=== PATIENT | female | born 1950 | race African-American/Black ===

== ENCOUNTER 2018-10-20 14:50 | Emergency (ER) | payer OTHER ==
--- OUTSIDE RECORDS SUMMARY | 2018-10-20 14:53 | XMS REPORT ---
:1950 Author Organization [facility] Address [address] [place] [address] [address]. [address] [place] [address] Care Team Providers Name Role Phone Unavailable Unavailable Unavailable Problems This patient has no known problems. Allergies, Adverse Reactions, Alerts This patient has no known allergies or adverse reactions. Medications This patient has no known medications.
--- OUTSIDE RECORDS SUMMARY | 2018-10-20 14:53 | XMS REPORT | Clinical Summary ---
:1950 Author Organization [facility] Address [address] [place] [address] Care Team Providers Name Role Phone Asked, No Pcp Primary Care Provider Unavailable Allergies Active Allergy Reactions Severity Noted Date Comments Levofloxacin Swelling 01/04/2017 Medications Medication Sig Dispensed Refills Start Date End Date Status ibuprofen Take 800 mg by 0 Active (ADVIL,MOTRIN) 800 MG mouth every 6 tablet (six) hours as needed for mild pain. metoprolol succinate Take 25 mg by 0 Active XL (TOPROL-XL) 25 mg mouth daily. 24 hr tablet amlodipine-benazepril Take 1 capsule 0 Active (LOTREL 5-10) 5-10 mg by mouth daily. per capsule cyanocobalamin 500 MCG Take 500 mcg by 0 Active tablet mouth daily. diazePAM (VALIUM) 5 MG Take 5 mg by 0 Active tablet mouth nightly as needed for anxiety. aspirin (ECOTRIN) 81 Take 81 mg by 0 Active MG enteric coated mouth daily. tablet lansoprazole Take 15 mg by 0 Active (PREVACID) 15 MG mouth daily. capsule HYDROcodone-acetaminop Take 1 tablet 0 Active hen (NORCO) 7.5-325 mg by mouth every per tablet 6 (six) hours as needed for moderate pain. naproxen (NAPROSYN) Take 1 tablet 60 tablet 0 01/04/2017 01/04/2018 500 MG tablet (500 mg total) by mouth 2 (two) times a day with meals. Active Problems Problem Noted Date Primary osteoarthritis of left hip 01/04/2017 DDD (degenerative disc disease), lumbar 01/04/2017 Tendinitis of hip 01/04/2017 Social History Tobacco Use Types Packs/Day Years Used Date Never Assessed Sex Assigned at Date Recorded Not on file Job Start Date Occupation Industry Not on file Not on file Not on file Travel History Travel Start Travel End No recent travel history available. Last Filed Vital Signs Not on file Plan of Treatment Health Maintenance Due Date Last Done Comments BREAST CANCER SCREENING 2002 COLON CANCER SCREENING 2002 SHINGLES VACCINES (1 of 2) 2002 PNEUMOCOCCAL POLYSACCHARIDE VACCINE AGE 65 AND OVER 2017 PNEUMOCOCCAL-13 2017 INFLUENZA VACCINE 05/16/2018 Results Not on fileafter 10/19/2017 Insurance Payer Benefit Plan / Group Subscriber ID Type Phone Address MEDICARE MEDICARE PART A AND B xxxxxxxxxxx Medicare [place], [place] Advance Directives Patient has advance care planning documents on file. For more information, please contact:[facility] [address] [place] [address]
[2018-10-20 20:25] LABS: Absolute Lymphocytes (CBC) 2.4 K/uL (0.7-4.9); Absolute Monocytes 0.8 K/uL (0.1-1.3); Absolute Neutrophil 5.3 K/uL (1.8-8.0); Basophils % 1.1 % (0-1.3); Eosinophils % 1.4 % (0-4.4); Hematocrit 41.4 % (36.0-45.0); MPV 9.6 fL (7.6-11.3); Monocytes % 8.8 % (3.3-12.3); RBC Red Blood Cell Count 4.81 M/uL (3.86-4.86)
[2018-10-20 20:27] LABS: Protime INR 1.13
[2018-10-20] MEDS ORDERED: ONDANSETRON 4 MG/2 ML VIAL ONE (20:27)
[2018-10-20] MEDS ORDERED: MORPHINE 4 MG/ML SYR ONE (20:27)
[2018-10-20] MEDS ORDERED: PIPER/TAZO/NS 3.375gm 3.375 GM/100 ML BAG ONE (20:27)
[2018-10-20] MEDS ORDERED: AMOX/K CLAV 875 MG TAB ONE (20:27)
[2018-10-20] MEDS ORDERED: NA CHLORIDE 0.9% 1,000 ML ONE (20:28)
[2018-10-20 20:30] LABS: Urine Blood 1+ (NEG); Urine Glucose NEGATIVE (NEG); Urine Protein NEGATIVE (NEG); Urine pH 6.5 (5.0-7.0)
[2018-10-20 20:44] LABS: ALT/SGPT 50 U/L (12-78); AST/SGOT 32 U/L (15-37); Albumin 3.6 g/dL (3.4-5.0); Alkaline Phosphatase 154 U/L (45-117); BUN Blood Urea Nitrogen 7 mg/dL (7-18); Bicarbonate 29 mmol/L (21-32); Bilirubin Direct 0.1 mg/dL (0-0.2); Bilirubin Total 0.4 mg/dL (0.2-1.0); Glucose Level 83 mg/dL (74-106); Magnesium 2.3 mg/dL (1.8-2.4); NT PRO-BNP 33 pg/mL (<125); Potassium 3.1 mmol/L (3.5-5.1); Protein, Total 7.7 g/dL (6.4-8.2); Sodium Level 142 mmol/L (136-145); Troponin (Emerg Dept Use Only) < 0.02 ng/mL (0.0-0.045)
--- NOTE | 2018-10-20 21:02 | RAD REPORT ---
EXAM DESCRIPTION: Rose Single View10/20/2018 7:33 pm CLINICAL HISTORY: Cough COMPARISON: 2016 FINDINGS: The lungs appear clear of acute infiltrate. The heart is normal size IMPRESSION: No acute abnormalities displayed
--- NOTE | 2018-10-20 21:40 | RAD REPORT ---
EXAM DESCRIPTION: CTFacial Bones W Con Mpr10/20/2018 9:10 pm CLINICAL HISTORY: Right facial pain and swelling COMPARISON: None. TECHNIQUE: Computed axial tomography of the face obtained with coronal and sagittal reconstruction. 50 cc Isovue-[address] scans are performed using dose optimization technique as appropriate and may include automated exposure control or mA/KV adjustment according to patient size. FINDINGS: Edema is present within the subcutaneous tissues the right face. An abscess is not seen. The parotid and submandibular glands appear unremarkable. The parapharyngeal fat is clear. Fluid within the sinuses is not noted. Bilateral thyroid nodules IMPRESSION: Edema within the subcutaneous tissues of the right face compatible with a cellulitis. An abscess is not seen. Bilateral thyroid nodules. Nonemergent thyroid ultrasound recommended .
--- NOTE | 2018-10-20 22:03 | ER ---
Nurse's Notes [facility] Name: Areli Vanessa Age: 68 yrs Sex: Female : 1950 Arrival Date: 10/20/2018 Time: 14:55 Bed 27 Private MD: Moose Arreguin T Diagnosis: Dental caries;Cellulitis of face Presentation: 10/20 15:01 Presenting complaint: Patient states: Right facial swelling for 3 days. Seen by dentist aj yesterday and started ABX, told to follow up with oral surgeon. Transition of care: patient was not received from another setting of care. Onset of symptoms was October 17, 2018. Risk Assessment: Do you want to hurt yourself or someone else? Patient reports no desire to harm self or others. Initial Sepsis Screen: Does the patient meet any 2 criteria? No. Patient's initial sepsis screen is negative. Does the patient have a suspected source of infection? Yes:. Care prior to arrival: None. 15:01 Method Of Arrival: Ambulatory 15:01 Acuity: BARRON 3 aj Triage Assessment: 15:03 General: Appears in no apparent distress. comfortable, Behavior is calm, cooperative, aj appropriate for age. Pain: Complains of pain in right zygomatic area. EENT: swelling to right cheek. Neuro: Level of Consciousness is awake, alert, obeys commands, Oriented to person, place, time, situation, Appropriate for age. Respiratory: Airway is patent Respiratory effort is even, unlabored, Respiratory pattern is regular, symmetrical. Derm: Skin is intact, is healthy with good turgor, Skin is pink, warm \T\ dry. normal. Historical: - Allergies: 15:03 Levaquin; aj 15:03 Flagyl; aj 15:03 Clindamycin; aj - Home Meds: 15:03 metoprolol tartrate 25 mg Oral tab 1 tab once daily [Active]; amlodipine-benazepril aj 5-10 mg Oral cap 1 cap once daily [Active]; hydrocodone-acetaminophen 7.5-325 mg Oral tab 1 tab daily [Active]; Prevacid Oral [Active]; - PMHx: 15:03 CAD; GERD; hemorrhoids; Hypertension; Kidney stones; aj - PSHx: 15:03 Cholecystectomy; Hysterectomy; Carpal Tunnel Repair; aj - Immunization history:: Adult Immunizations up to date. - Social history:: Smoking status: Patient uses tobacco products, smokes one-half pack cigarettes per day. - Ebola Screening: : Patient negative for fever greater than or equal to 101.5 degrees Fahrenheit, and additional compatible Ebola Virus Disease symptoms Patient denies exposure to infectious person Patient denies travel to an Ebola-affected area in the 21 days before illness onset No symptoms or risks identified at this time. - Family history:: not pertinent. Screenin:12 Abuse screen: Denies threats or abuse. Denies injuries from another. Nutritional ed1 screening: No deficits noted. Tuberculosis screening: No symptoms or risk factors identified. Fall Risk None identified. Assessment: 22:01 Reassessment: Patient appears in no apparent distress at this time. Patient and/or ed1 family updated on plan of care and expected duration. Pain level reassessed. Patient is alert, oriented x 3, equal unlabored respirations, skin warm/dry/pink. Patient states feeling better. Patient states symptoms have improved. 22:49 Reassessment: Patient appears in no apparent distress at this time. Patient and/or ed1 family updated on plan of care and expected duration. Pain level reassessed. Patient is alert, oriented x 3, equal unlabored respirations, skin warm/dry/pink. Patient states feeling better. Patient states symptoms have improved. Vital Signs: 15:03 BP 153 / 73; Pulse 83; Resp 19; Temp 98.5; Pulse Ox 100% on R/A; Weight 63.5 kg; Height aj 4 ft. 9 in. (144.78 cm); 22:01 BP 146 / 72; Pulse 83; Resp 17; Pulse Ox 99% on R/A; Pain 4/10; ed1 22:49 BP 137 / 83; Pulse 76; Resp 17; Temp 97.6(O); Pulse Ox 100% on R/A; Pain 3/10; ed1 15:03 Body Mass Index 30.30 (63.50 kg, 144.78 cm) ED Course: 14:55 Patient arrived in ED. mr 14:55 Moose Arreguin MD is Private Physician. mr 15:02 Triage completed. aj 15:03 Arm band placed on right wrist. Patient placed in waiting room, Patient notified of wait time. 18:57 Heaven Ndiaye LVN is Primary Nurse. ed1 18:58 Tiburcio Peralta MD is Attending Physician. [facility] 19:12 Patient has correct armband on for positive identification. Placed in gown. Bed in low ed1 position. Call light in reach. Side rails up X 1. Warm blanket given. 19:22 Juan J Reis NP is PHCP. pm1 19:31 XRAY Chest (1 view) In Process Unspecified. EDMS 20:05 Initial lab(s) drawn, by me, sent to lab. Inserted saline lock: 22 gauge in left bb antecubital area, using aseptic technique. Blood collected. 21:10 CT completed. Patient tolerated procedure well. kw1 21:16 CT Facial Bones W/ Con \T\ Mpr In Process Unspecified. EDMS 22:02 Eduardo Crawford DDS is Referral Physician. pm1 22:49 No provider procedures requiring assistance completed. IV discontinued, intact, ed1 bleeding controlled, No redness/swelling at site. Pressure dressing applied. Administered Medications: 20:31 Drug: Zosyn 3.375 grams Route: IVPB; Infused Over: 60 mins; Site: left antecubital; ed1 22:51 Follow up: Response: No adverse reaction; IV Status: Completed infusion ed1 20:31 Drug: NS 0.9% 1000 ml Route: IV; Rate: 125 ml/hr; Site: left antecubital; ed1 22:51 Follow up: IV Status: Order to discontinue infusion; IV Intake: 250ml ed1 20:32 Drug: Augmentin 875 mg Route: PO; ed1 22:02 Follow up: Response: No adverse reaction ed1 20:33 Drug: morphine 4 mg Route: IVP; Site: left antecubital; bb 22:03 Follow up: Response: No adverse reaction; Pain is unchanged, physician notified ed1 20:33 Drug: Zofran 4 mg Route: IVP; Site: left antecubital; bb 22:02 Follow up: Response: No adverse reaction; Nausea is decreased ed1 22:12 Drug: Holton 10 mg-325 mg 1 tabs Route: PO; ed1 22:49 Follow up: Response: No adverse reaction; Pain is decreased ed1 Intake: 22:51 IV: 250ml; Total: 250ml. ed1 Outcome: 22:02 Discharge ordered by . pm1 22:49 Discharged to home ambulatory, with significant other. ed1 22:49 Condition: good 22:49 Discharge instructions given to patient, significant other, Instructed on discharge instructions, follow up and referral plans. medication usage, Demonstrated understanding of instructions, follow-up care, medications, Prescriptions given X 2. 22:52 Patient left the ED. ed1 Signatures: Dispatcher [employer] EDMS Rekha Ballard RN RN aj Anderson, Corey, MD MD cha Rivera, Mary mr Jocelyn Barboza RN RN bb Riggs, Erika, IRONING MACHINE OPERATOR IRONING MACHINE OPERATOR ed1 Juan J Reis, VICKY SODA FOUNTAIN OPERATOR pm1 Desirae Webster kw1
--- NOTE | 2018-10-20 22:03 | EDPHYS ---
Physician Documentation [facility] Name: Areli Vanessa Age: 68 yrs Sex: Female : 1950 Arrival Date: 10/20/2018 Time: 14:55 Bed 27 Private MD: Moose Arreguni T ED Physician Tiburcio Peralta HPI: 10/20 19:08 This 68 yrs old Black Female presents to ER via Ambulatory with complaints of Facial ede Swelling. 19:08 The patient or guardian reports pain, swelling, tenderness. The complaints affect the ede right cheek, mouth and right zygomatic area. Context of injury: The problem was sustained at an unknown location. Onset: The symptoms/episode began/occurred 2 day(s) ago. Associated signs and symptoms: The patient has no apparent associated signs or symptoms. Severity of symptoms: At their worst the symptoms were mild, moderate, in the emergency department the symptoms are unchanged. The patient has experienced similar episodes in the past, several times. Historical: - Allergies: 15:03 Levaquin; aj 15:03 Flagyl; aj 15:03 Clindamycin; aj - Home Meds: 15:03 metoprolol tartrate 25 mg Oral tab 1 tab once daily [Active]; amlodipine-benazepril aj 5-10 mg Oral cap 1 cap once daily [Active]; hydrocodone-acetaminophen 7.5-325 mg Oral tab 1 tab daily [Active]; Prevacid Oral [Active]; - PMHx: 15:03 CAD; GERD; hemorrhoids; Hypertension; Kidney stones; aj - PSHx: 15:03 Cholecystectomy; Hysterectomy; Carpal Tunnel Repair; aj - Immunization history:: Adult Immunizations up to date. - Social history:: Smoking status: Patient uses tobacco products, smokes one-half pack cigarettes per day. - Ebola Screening: : Patient negative for fever greater than or equal to 101.5 degrees Fahrenheit, and additional compatible Ebola Virus Disease symptoms Patient denies exposure to infectious person Patient denies travel to an Ebola-affected area in the 21 days before illness onset No symptoms or risks identified at this time. - Family history:: not pertinent. ROS: 19:08 Constitutional: Negative for fever, chills, and weight loss, Eyes: Negative for injury, ede pain, redness, and discharge, Neck: Negative for injury, pain, and swelling, Cardiovascular: Negative for chest pain, palpitations, and edema, Respiratory: Negative for shortness of breath, cough, wheezing, and pleuritic chest pain, Abdomen/GI: Negative for abdominal pain, nausea, vomiting, diarrhea, and constipation, Back: Negative for injury and pain, : Negative for injury, bleeding, discharge, and swelling, MS/Extremity: Negative for injury and deformity, Skin: Negative for injury, rash, and discoloration, Neuro: Negative for headache, weakness, numbness, tingling, and seizure, Psych: Negative for depression, anxiety, suicide ideation, homicidal ideation, and hallucinations, Allergy/Immunology: Negative for hives, rash, and allergies, Endocrine: Negative for neck swelling, polydipsia, polyuria, polyphagia, and marked weight changes, Hematologic/Lymphatic: Negative for swollen nodes, abnormal bleeding, and unusual bruising. 19:08 ENT: Positive for of the right cheek and right jaw, sinus pain, Teeth pain Exam: 19:08 Constitutional: This is a well developed, well nourished patient who is awake, alert, ede and in no acute distress. Eyes: Pupils equal round and reactive to light, extra-ocular motions intact. Lids and lashes normal. Conjunctiva and sclera are non-icteric and not injected. Cornea within normal limits. Periorbital areas with no swelling, redness, or edema. ENT: Nares patent. No nasal discharge, no septal abnormalities noted. Tympanic membranes are normal and external auditory canals are clear. Oropharynx with no redness, swelling, or masses, exudates, or evidence of obstruction, uvula midline. Mucous membranes moist. Neck: Trachea midline, no thyromegaly or masses palpated, and no cervical lymphadenopathy. Supple, full range of motion without nuchal rigidity, or vertebral point tenderness. No Meningismus. Chest/axilla: Normal chest wall appearance and motion. Nontender with no deformity. No lesions are appreciated. Cardiovascular: Regular rate and rhythm with a normal S1 and S2. No gallops, murmurs, or rubs. Normal PMI, no JVD. No pulse deficits. Respiratory: Lungs have equal breath sounds bilaterally, clear to auscultation and percussion. No rales, rhonchi or wheezes noted. No increased work of breathing, no retractions or nasal flaring. Abdomen/GI: Soft, non-tender, with normal bowel sounds. No distension or tympany. No guarding or rebound. No evidence of tenderness throughout. Back: No spinal tenderness. No costovertebral tenderness. Full range of motion. Female : Normal external genitalia. Skin: Warm, dry with normal turgor. Normal color with no rashes, no lesions, and no evidence of cellulitis. MS/ Extremity: Pulses equal, no cyanosis. Neurovascular intact. Full, normal range of motion. Neuro: Awake and alert, GCS 15, oriented to person, place, time, and situation. Cranial nerves II-XII grossly intact. Motor strength 5/5 in all extremities. Sensory grossly intact. Cerebellar exam normal. Normal gait. Psych: Awake, alert, with orientation to person, place and time. Behavior, mood, and affect are within normal limits. 19:08 Head/face: Noted is swelling, tenderness, that is moderate, of the right cheek, mouth and right jaw. Vital Signs: 15:03 BP 153 / 73; Pulse 83; Resp 19; Temp 98.5; Pulse Ox 100% on R/A; Weight 63.5 kg; Height aj 4 ft. 9 in. (144.78 cm); 22:01 BP 146 / 72; Pulse 83; Resp 17; Pulse Ox 99% on R/A; Pain 4/10; ed1 22:49 BP 137 / 83; Pulse 76; Resp 17; Temp 97.6(O); Pulse Ox 100% on R/A; Pain 3/10; ed1 15:03 Body Mass Index 30.30 (63.50 kg, 144.78 cm) MDM: 18:58 Patient medically screened. [facility] 19:11 Data reviewed: vital signs, nurses notes, lab test result(s), EKG, radiologic studies, [facility] CT scan, plain films. 21:56 Data interpreted: Pulse oximetry: on room air is 100 %. Interpretation: normal. pm1 Counseling: I had a detailed discussion with the patient and/or guardian regarding: the historical points, exam findings, and any diagnostic results supporting the discharge/admit diagnosis, lab results, radiology results, the need for outpatient follow up, for definitive care, an oral maxilofacial specialist, to return to the emergency department if symptoms worsen or persist or if there are any questions or concerns that arise at home. 10/20 19:08 Order name: Basic Metabolic Panel; Complete Time: 20:48 [facility] 10/20 19:08 Order name: CBC with Diff; Complete Time: 20:48 [facility] 10/20 19:08 Order name: LFT's; Complete Time: 20:48 [facility] 10/20 19:08 Order name: Magnesium; Complete Time: 20:48 [facility] 10/20 19:08 Order name: NT PRO-BNP; Complete Time: 20:48 [facility] 10/20 19:08 Order name: PT-INR; Complete Time: 20:48 [facility] 10/20 19:08 Order name: Troponin (emerg Dept Use Only); Complete Time: 20:48 [facility] 10/20 19:08 Order name: XRAY Chest (1 view); Complete Time: 21:31 [facility] 10/20 19:08 Order name: CT Facial Bones W/ Con \T\ Mpr; Complete Time: 21:42 [facility] 10/20 20:26 Order name: Urine Dipstick--Ancillary (enter results); Complete Time: 20:48 [facility] 10/20 19:08 Order name: Cardiac monitoring; Complete Time: 19:41 [facility] 10/20 19:08 Order name: IV Saline Lock; Complete Time: 20:32 [facility] 10/20 19:08 Order name: Labs collected and sent; Complete Time: 20:32 [facility] 10/20 19:08 Order name: O2 Per Protocol; Complete Time: 19:41 [facility] 10/20 19:08 Order name: O2 Sat Monitoring; Complete Time: 19:41 [facility] 10/20 19:08 Order name: Urine Dipstick-Ancillary (obtain specimen); Complete Time: 19:41 [facility] Administered Medications: 20:31 Drug: Zosyn 3.375 grams Route: IVPB; Infused Over: 60 mins; Site: left antecubital; ed1 22:51 Follow up: Response: No adverse reaction; IV Status: Completed infusion ed1 20:31 Drug: NS 0.9% 1000 ml Route: IV; Rate: 125 ml/hr; Site: left antecubital; ed1 22:51 Follow up: IV Status: Order to discontinue infusion; IV Intake: 250ml ed1 20:32 Drug: Augmentin 875 mg Route: PO; ed1 22:02 Follow up: Response: No adverse reaction ed1 20:33 Drug: morphine 4 mg Route: IVP; Site: left antecubital; bb 22:03 Follow up: Response: No adverse reaction; Pain is unchanged, physician notified ed1 20:33 Drug: Zofran 4 mg Route: IVP; Site: left antecubital; bb 22:02 Follow up: Response: No adverse reaction; Nausea is decreased ed1 22:12 Drug: [place] 10 mg-325 mg 1 tabs Route: PO; ed1 22:49 Follow up: Response: No adverse reaction; Pain is decreased ed1 Disposition: 10/20/18 22:02 Discharged to Home. Impression: Cellulitis of face, Dental caries. - Condition is Stable. - Discharge Instructions: Cellulitis, Adult, Dental Pain. - Prescriptions for Augmentin 875- 125 mg Oral Tablet - take 1 tablet by ORAL route every 12 hours for 10 days; 20 tablet. Tramadol 50 mg Oral Tablet - take 1 tablet by ORAL route every 8 hours as needed; 20 tablet. - Medication Reconciliation Form, Thank You Letter, Antibiotic Education, Prescription Opioid Use form. - Follow up: Emergency Department; When: As needed; Reason: Worsening of condition. Follow up: Eduardo Crawford DDS; When: 2 - 3 days; Reason: Recheck today's complaints, Continuance of care, Re-evaluation by your physician. - Problem is new. - Symptoms have improved. Addendum: 10/24/2018 07:36 Co-signature as Attending Physician, Tiburcio Peralta MD I agree with the assessment and c renae plan of care. Signatures: Dispatcher [employer] EDCA Rekha Ballard RN RN aj Anderson, Corey, MD MD cha Ballard, Brenda, RN RN bb Riggs, Erika, SHIPS EQUIPMENT ENGINEER SHIPS EQUIPMENT ENGINEER ed1 Juan J Reis, VICKY STEAM FITTER SUPERVISOR MAINTENANCE pm1 Corrections: (The following items were deleted from the chart) 10/20 22:03 19:08 EKG - Nurse/Tech ordered. ede ed1 22:52 22:02 10/20/2018 22:02 Discharged to Home. Impression: Cellulitis of faceDental caries. ed1 Condition is Stable. Forms are Medication Reconciliation Form, Thank You Letter, Antibiotic Education, Prescription Opioid Use. Follow up: Emergency Department; When: As needed; Reason: Worsening of condition. Follow up: Eduardo Crawford; When: 2 - 3 days; Reason: Recheck today's complaints, Continuance of care, Re-evaluation by your physician. Problem is new. Symptoms have improved. pm1
[2018-10-20] MEDS ORDERED: HYDROCODONE/APAP 10/325 TAB ONE (22:19)
[2018-10-20 23:08] VITALS: BP 137/83; TEMP 97.6; O2SAT 100
== END 2018-10-20 22:52 | disposition home or self-care (01) ==
LOC: ER 14:50
DX: L03.211 Cellulitis of face (principal); I10 Essential (primary) hypertension; I25.10 Atherosclerotic heart disease of native coronary artery without angina pectoris; K21.9 Gastro-esophageal reflux disease without esophagitis; F17.210 Nicotine dependence, cigarettes, uncomplicated; Z88.1 Allergy status to other antibiotic agents; Z88.3 Allergy status to other anti-infective agents; Z88.8 Allergy status to other drugs, medicaments and biological substances
CPT/HCPCS: 36415; 70487; 71045; 76377; 80048; 80076; 81003; 83735; 83880; 84484; 85025; 85610; 96365; 96366; 96375; 99284; J2405; J2543; J7030; Q9967

== ENCOUNTER → 2024-01-01 | Emergency (ER) | payer OTHER ==
[~2024-01-01] MED LIST: ASPIRIN 81 MG CHEWABLE TABLET ONE; BENZONATATE 100 MG CAP PO ONE; KETOROLAC 30 MG/ML INJ ONE; POTASSIUM 25 MEQ EFFERV TAB ONE
[2024-01-01 17:36] LABS: Absolute Basophils 0.1 K/uL (0-0.5); Absolute Eosinophils 0.1 K/uL (0-0.5); Absolute Lymphocytes (CBC) 1.7 K/uL (0.7-4.9); Absolute Monocytes 0.3 K/uL (0.1-1.3); Absolute Neutrophil 4.2 K/uL (1.8-8.0); Basophils % 1.6 % (0-1.3); Eosinophils % 1.7 % (0-4.4); Hemoglobin 12.7 g/dL (12.0-15.0); Lymphocytes % 26.8 % (15.3-44.8); MCH 27.8 pg (27.0-35.0); MCHC 32.7 g/dL (32.0-36.0); MPV 8.7 fL (7.6-11.3); Monocytes % 4.9 % (3.3-12.3); Nucleated Red Blood Cells % 0.2 % (0-0); Platelets 215 thou/uL (152-406); RBC Red Blood Cell Count 4.58 M/uL (3.86-4.86); Red Cell Distribution Width 14.9 % (12.1-15.2)
--- NOTE | 2024-01-01 18:45 | RAD REPORT ---
EXAM DESCRIPTION: Cristinat Single View01/01/2024 5:35 pm CLINICAL HISTORY: CHEST PAIN COMPARISON: Chest Single View dated 10/20/2018; Chest Single View dated 06/20/2016; Chest Single View da savage 06/19/2016; CHEST PA AND LAT 2 VIEW dated 11/05/2013 TECHNIQUE: Portable AP view of the chest. FINDINGS: The lungs are clear. No pneumothorax or effusion. The cardiomediastinal contours are unre markable. IMPRESSION: No acute cardiopulmonary process.
[2024-01-01 20:06] LABS: Anion Gap 6.4 mEq/L (5.0-15.0); Troponin High Sensitivity 24.4 pg/mL (<58.9)
[2024-01-01 20:15] LABS: Magnesium 2.2 mg/dL (1.6-2.4); Potassium 3.4 mEq/L (3.5-5.1)
--- NOTE | 2024-01-01 21:51 | EDPHYS ---
Physician Documentation [facility] Name: Areli Vanessa Age: 73 yrs Sex: Female : 1950 Arrival Date: 01/01/2024 Time: 16:45 Bed 10 Private MD: ED Physician Cody Barrera HPI: 12/31 18:07 This 73 yrs old Black Female presents to ER via Ambulatory with complaints of Chest ms3 Pain > 30 y/o, Cough. 18:07 73-year-old female with past medical history of coronary artery disease, carpal tunnel, ms3 cholecystectomy, GERD, hemorrhoids, hypertension, kidney stones presents to the emergency department for stinging chest pain that began 2 days prior to arrival. Patient states the pain is a 6/10 and does not radiate. The pain is not alleviated or incited by any factors. Patient endorses nausea and sweating.. Historical: - Allergies: 17:01 Clindamycin; ph 17:01 Flagyl; ph 17:01 Levaquin; ph - Home Meds: 18:50 hydrocodone-acetaminophen 7.5-325 mg Oral tab 1 tab every 8 hours [Active]; amlodipine tl4 10 mg oral tablet 1 tab daily [Active]; rosuvastatin 5 mg oral tablet 1 tab daily [Active]; metoprolol succinate 50 mg oral Tablet, Extended Release 24 hr 1 tab daily [Active]; sertraline 100 mg oral tablet 1 tab daily [Active]; aspirin 81 mg Oral tablet,chewable 1 tab as needed [Active]; omeprazole 40 mg Oral capsule,delayed release (e.c.) 1 cap daily [Active]; - PMHx: 17:01 CAD; carpel tunnel; cholecystectomy; GERD; hemorrhoids; Hypertension; hysterectomy; ph Kidney stones; - Immunization history:: Adult Immunizations unknown. - Social history:: Smoking status: Patient reports the use of cigarette tobacco products, smokes one-half pack cigarettes per day. ROS: 18:07 Constitutional: Negative for fever, and chills. Neck: Negative for injury, pain, and ms3 swelling, 18:07 Respiratory: Negative for shortness of breath, cough, wheezing, and pleuritic chest pain, Abdomen/GI: Negative for abdominal pain, nausea, vomiting, diarrhea, and constipation, MS/Extremity: Negative for injury and deformity, Skin: Negative for injury, rash, and discoloration, 18:07 Cardiovascular: Positive for chest pain, Exam: 17:42 ECG was reviewed by the Attending Physician. ms3 18:07 Constitutional: This is a well developed, well nourished patient who is awake, alert, ms3 and in no acute distress. Head/Face: Normocephalic, atraumatic. Neck: Trachea midline, no cervical lymphadenopathy. Supple, full range of motion without nuchal rigidity, or vertebral point tenderness. No Meningismus. Chest/axilla: Normal chest wall appearance and motion. Nontender with no deformity. Cardiovascular: Regular rate and rhythm with a normal S1 and S2. No gallops, murmurs, or rubs. Normal PMI, no JVD. No pulse deficits. Respiratory: Lungs have equal breath sounds bilaterally, clear to auscultation and percussion. No rales, rhonchi or wheezes noted. No increased work of breathing, no retractions or nasal flaring. Abdomen/GI: Soft, non-tender, with normal bowel sounds. No distension or tympany. No guarding or rebound. No evidence of tenderness throughout. Skin: Warm, dry with normal turgor. Normal color with no rashes, no lesions, and no evidence of cellulitis. MS/ Extremity: Pulses equal, no cyanosis. Neurovascular intact. Full, normal range of motion. 21:20 ECG was reviewed by the Attending Physician. cp Vital Signs: 16:53 BP 149 / 85; Pulse 79; Resp 18; Temp 97.9; Pulse Ox 100% on R/A; Weight 64.41 kg; ph Height 4 ft. 9 in. ; 17:30 BP 135 / 89; Pulse 72; Resp 18; Pulse Ox 99% on R/A; tl4 18:00 BP 140 / 73; Pulse 68; Resp 18; Pulse Ox 98% ; tl4 18:30 BP 130 / 69; Pulse 61; Resp 19; Pulse Ox 98% on R/A; tl4 19:00 BP 136 / 75; Pulse 63; Resp 17; Pulse Ox 100% on R/A; tl4 19:30 BP 141 / 80; Pulse 83; Resp 19; Pulse Ox 100% ; tl4 20:00 BP 123 / 72; Pulse 70; Resp 17; Pulse Ox 99% on R/A; tl4 21:00 BP 140 / 76; Pulse 63; Resp 18; Pulse Ox 98% on R/A; tl4 21:30 BP 132 / 77; Pulse 68; Resp 15; Pulse Ox 98% on R/A; tl4 22:22 BP 135 / 88; Pulse 68; Resp 18; Temp 98.6(TE); Pulse Ox 98% on R/A; Pain 5/10; tl4 16:53 Body Mass Index 30.73 (64.41 kg, 144.78 cm) ph 22:22 Pain Scale: Adult tl4 [place] Coma Score: 22:22 Eye Response: spontaneous(4). Motor Response: obeys commands(6). Verbal Response: tl4 oriented(5). Total: 15. MDM: 17:20 Patient medically screened. ms3 18:07 Differential diagnosis: abnormal EKG, acute myocardial infarction, coronary artery ms3 disease chest wall pain. The patient was given aspirin in the Emergency Department. 18:10 Transition of care: After a detail discussion of the patient's case, care is ms3 transferred to Cody Barrera MD. 18:12 Data reviewed: vital signs. Transition of care: Care assumed from Bishnu Maldonado DO. ED ec2 course: Patient signed out to me by previous Physician in brief patient arrives today for evaluation of chest pain. Plan is to follow-up lab work and reassess.. 19:03 ED course: CBC reassuring, chest x-ray shows no acute intrathoracic process.. ec2 20:22 ED course: Metabolic profile reassuring, troponin within normal ranges, BNP within ec2 normal ranges. CBC is reassuring. Will obtain repeat EKG and troponin.. 12/31 16:51 Order name: Basic Metabolic Panel; Complete Time: 20:22 ms3 12/31 21:41 Interpretation: Normal except: K 3.4; CL 110; CA 8.4. cp 12/31 16:51 Order name: CBC with Diff; Complete Time: 19:03 ms3 12/31 16:51 Order name: Magnesium; Complete Time: 20:22 ms3 12/31 16:51 Order name: NT PRO-BNP; Complete Time: 20:22 ms3 12/31 16:51 Order name: Troponin HS; Complete Time: 20:22 ms3 12/31 21:41 Interpretation: Reviewed. cp 12/31 20:22 Order name: Troponin HS; Complete Time: 21:41 ec2 12/31 21:41 Interpretation: Reviewed. cp 12/31 16:51 Order name: XRAY Chest (1 view); Complete Time: 19:03 ms3 12/31 16:51 Order name: EKG; Complete Time: 16:51 ms3 12/31 16:51 Order name: Cardiac monitoring; Complete Time: 17:05 ms3 12/31 16:51 Order name: EKG - Nurse/Tech; Complete Time: 17:42 ms3 12/31 16:51 Order name: IV Saline Lock; Complete Time: 17:26 ms3 12/31 16:51 Order name: Labs collected and sent; Complete Time: 17:26 ms3 12/31 16:51 Order name: O2 Per Protocol; Complete Time: 17:05 ms3 12/31 16:51 Order name: O2 Sat Monitoring; Complete Time: 17:05 ms3 12/31 20:22 Order name: EKG - Nurse/Tech; Complete Time: 21:30 ec2 12/31 20:22 Order name: Misc. Order: repeat EKG/trop; Complete Time: 21:30 ec2 EC:42 Rate is 70 beats/min. Rhythm is regular. QRS [place] is Normal. [place] interval is normal. QRS ms3 interval is normal. Clinical impression: NSR w/ Non-specific ST/T Changes. Interpreted by me. Reviewed by me. 21:20 Rate is 61 beats/min. Rhythm is regular. [place] interval is normal. QRS interval is normal. cp QT interval is normal. T waves are Inverted in leads III, V2, V3, V4, V5. Interpreted by me. Reviewed by me. Administered Medications: 17:09 Drug: Aspirin PO Chewable Tablet 324 mg PO once; 81 mg tablets x 4 Route: PO; tl4 17:26 Follow up: Response: No adverse reaction tl4 22:20 Drug: Potassium PO Effervescent Tablet 25 mEq PO once; dissolve in 4 ounces of water or tl4 juice Route: PO; 22:37 Follow up: Response: No adverse reaction tl4 22:20 Drug: Ketorolac IVP 15 mg IVP once Route: IVP; Site: left forearm; tl4 22:37 Follow up: Response: No adverse reaction tl4 22:21 Drug: Tessalon Perle PO 200 mg PO once Route: PO; tl4 22:37 Follow up: Response: No adverse reaction; Medication administered at discharge. tl4 Disposition Summary: 01/01/24 21:51 Discharge Ordered Notes: Location: Home cp Problem: new cp Symptoms: have improved cp Condition: Stable cp Diagnosis - Cough cp - Chest pain, unspecified cp Followup: cp - With: Private Physician - When: 2 - 3 days - Reason: Recheck today's complaints Discharge Instructions: - Discharge Summary Sheet cp - Nonspecific Chest Pain, Adult cp - Aspirin and Your Heart cp - Cough, Adult cp Forms: - Medication Reconciliation Form cp - Thank You Letter cp - Antibiotic Education cp - Prescription Opioid Use cp - Patient Portal Instructions cp - Leadership Thank You Letter cp Prescriptions: - Bromfed DM 2-30-10 mg/5 mL Oral syrup - administer 10 milliliter ORAL route every 6 hours as needed for cold symptoms; cp 240 milliliter; Refills: 0, Product Selection Permitted - Ibuprofen 600 mg Oral tablet - take 1 tablet ORAL route every 8 hours As needed take with food; 30 tablet; cp Refills: 0, Product Selection Permitted Addendum: 01/03/2024 14:27 I was immediately available for consultation during this patient's visit. I did not e c2 personally see the patient or discuss the patient with the NATE. . Signatures: Dispatcher [employer] Krissy Cortez, RN RN Tiburcio Thakur, Bishnu Thrasher cp, DO DO ms3 Cody Barrera MD MD ec2 Derrick Paul RN RN tl4 Corrections: (The following items were deleted from the chart) 12/31 18:34 18:12 ED course: Patient signed out to. Physician in brief patient arrives today for ec2 evaluation of chest pain. Plan is to follow-up lab work and reassess.. ec2
--- NOTE | 2024-01-01 21:51 | ER ---
Nurse's Notes [facility] Name: Areli Vanessa Age: 73 yrs Sex: Female : 1950 Arrival Date: 01/01/2024 Time: 16:45 Bed 10 Private MD: Diagnosis: Cough;Chest pain, unspecified Presentation: 12/31 16:53 Chief complaint: Patient states: Cough x 1 week, R sided chest pain, describes as ph "stinging" x 2 days, also reports low grade fever, SOB w/ cough, fatigue and nausea. Coronavirus screen: Vaccine status: Patient reports receiving the 2nd dose of the covid vaccine. Ebola Screen: No symptoms or risks identified at this time. Initial Sepsis Screen: Does the patient meet any 2 criteria? No. Patient's initial sepsis screen is negative. Does the patient have a suspected source of infection? No. Patient's initial sepsis screen is negative. Risk Assessment: Do you want to hurt yourself or someone else? Patient reports no desire to harm self or others. Onset of symptoms was January 01, 2024. 16:53 Method Of Arrival: Ambulatory 16:53 Acuity: BARRON 3 ph Triage Assessment: 17:02 General: Appears in no apparent distress. Behavior is calm, cooperative. Pain: ph Complains of pain in right breast Quality of pain is described as stinging. Cardiovascular: Reports chest pain, Chest pain is located in right anterior chest wall is aggravated by breathing. Historical: - Allergies: 17:01 Clindamycin; ph 17:01 Flagyl; ph 17:01 Levaquin; ph - Home Meds: 18:50 hydrocodone-acetaminophen 7.5-325 mg Oral tab 1 tab every 8 hours [Active]; amlodipine tl4 10 mg oral tablet 1 tab daily [Active]; rosuvastatin 5 mg oral tablet 1 tab daily [Active]; metoprolol succinate 50 mg oral Tablet, Extended Release 24 hr 1 tab daily [Active]; sertraline 100 mg oral tablet 1 tab daily [Active]; aspirin 81 mg Oral tablet,chewable 1 tab as needed [Active]; omeprazole 40 mg Oral capsule,delayed release (e.c.) 1 cap daily [Active]; - PMHx: 17:01 CAD; carpel tunnel; cholecystectomy; GERD; hemorrhoids; Hypertension; hysterectomy; ph Kidney stones; - Immunization history:: Adult Immunizations unknown. - Social history:: Smoking status: Patient reports the use of cigarette tobacco products, smokes one-half pack cigarettes per day. Screenin:27 [facility] ED Fall Risk Assessment (Adult) History of falling in the last 3 months, tl4 including since admission No falls in past 3 months (0 pts) Confusion or Disorientation No (0 pts) Intoxicated or Sedated No (0 pts) Impaired Gait No (0 pts) Mobility Assist Device Used No (0 pt) Altered Elimination No (0 pt) Score/Fall Risk Level 0 - 2 = Low Risk Oriented to surroundings, Maintained a safe environment, Educated pt \\T\\ family on fall prevention, incl call for assistance when getting out of bed, Assessed \\T\\ reinforced patient's understanding of fall precautions, Hourly rounding (assess needs \\T\\ fall precautionary measures) done, Used ambulatory aids as needed (educated on \\T\\ assisted with), Used gait belt as appropriate. Abuse screen: Denies threats or abuse. Denies injuries from another. Nutritional screening: No deficits noted. Tuberculosis screening: No symptoms or risk factors identified. Assessment: 17:28 General: Appears in no apparent distress. Behavior is calm, cooperative. Pain: tl4 Complains of pain in chest Pain does not radiate. Pain began gradually, 2-3 days ago. Neuro: Level of Consciousness is awake, alert, obeys commands, Oriented to person, place, time, situation, Gait is steady, Speech is normal, Facial symmetry appears normal. Cardiovascular: Reports chest pain, diaphoresis, Capillary refill < 3 seconds JVD is absent Patient's skin is warm and dry. Rhythm is sinus rhythm Chest pain quality is burning. Respiratory: Reports cough that is non-productive, pain with cough Breath sounds are clear bilaterally. GI: No deficits noted. No signs and/or symptoms were reported involving the gastrointestinal system. : No deficits noted. No signs and/or symptoms were reported regarding the genitourinary system. EENT: Reports nasal congestion. Derm: No deficits noted. No signs and/or symptoms reported regarding the dermatologic system. Musculoskeletal: No deficits noted. No signs and/or symptoms reported regarding the musculoskeletal system. 18:48 Reassessment: No changes from previously documented assessment. Patient and/or family tl4 updated on plan of care and expected duration. Pain level reassessed. Patient is alert, oriented x 3, equal unlabored respirations, skin warm/dry/pink. 19:55 Reassessment: No changes from previously documented assessment. Patient and/or family tl4 updated on plan of care and expected duration. Pain level reassessed. Patient is alert, oriented x 3, equal unlabored respirations, skin warm/dry/pink. 21:34 Reassessment: No changes from previously documented assessment. Patient and/or family tl4 updated on plan of care and expected duration. Pain level reassessed. Patient is alert, oriented x 3, equal unlabored respirations, skin warm/dry/pink. 22:35 Reassessment: No changes from previously documented assessment. Patient and/or family tl4 updated on plan of care and expected duration. Pain level reassessed. Patient is alert, oriented x 3, equal unlabored respirations, skin warm/dry/pink. Patient states symptoms have not improved. Vital Signs: 16:53 BP 149 / 85; Pulse 79; Resp 18; Temp 97.9; Pulse Ox 100% on R/A; Weight 64.41 kg; ph Height 4 ft. 9 in. ; 17:30 BP 135 / 89; Pulse 72; Resp 18; Pulse Ox 99% on R/A; tl4 18:00 BP 140 / 73; Pulse 68; Resp 18; Pulse Ox 98% ; tl4 18:30 BP 130 / 69; Pulse 61; Resp 19; Pulse Ox 98% on R/A; tl4 19:00 BP 136 / 75; Pulse 63; Resp 17; Pulse Ox 100% on R/A; tl4 19:30 BP 141 / 80; Pulse 83; Resp 19; Pulse Ox 100% ; tl4 20:00 BP 123 / 72; Pulse 70; Resp 17; Pulse Ox 99% on R/A; tl4 21:00 BP 140 / 76; Pulse 63; Resp 18; Pulse Ox 98% on R/A; tl4 21:30 BP 132 / 77; Pulse 68; Resp 15; Pulse Ox 98% on R/A; tl4 22:22 BP 135 / 88; Pulse 68; Resp 18; Temp 98.6(TE); Pulse Ox 98% on R/A; Pain 5/10; tl4 16:53 Body Mass Index 30.73 (64.41 kg, 144.78 cm) ph 22:22 Pain Scale: Adult tl4 Vitals: 22:22 Cardiac Rhythm Assessment Regular Sinus rhythm. tl4 [place] Coma Score: 22:22 Eye Response: spontaneous(4). Motor Response: obeys commands(6). Verbal Response: tl4 oriented(5). Total: 15. ED Course: 16:50 Patient arrived in ED. ae5 16:51 Bishnu Maldonado DO is Attending Physician. ms3 16:59 Triage completed. ph 17:02 Arm band placed on Patient placed in an exam room, on a stretcher. ph 17:05 Derrick Paul, RN is Primary Nurse. tl4 17:26 Basic Metabolic Panel Sent. tl4 17:26 CBC with Diff Sent. tl4 17:27 Magnesium Sent. tl4 17:27 NT PRO-BNP Sent. tl4 17:27 Troponin HS Sent. tl4 17:27 No provider procedures requiring assistance completed. Patient maintains SpO2 tl4 saturation greater than 95% on room air. 17:27 Inserted saline lock: 22 gauge in left forearm, using aseptic technique. Blood tl4 collected. 17:28 Patient has correct armband on for positive identification. Placed in gown. Bed in low tl4 position. Call light in reach. Side rails up X 1. Adult w/ patient. Provided Education on: ED process. Client placed on continuous cardiac and pulse oximetry monitoring. NIBP monitoring applied. threat monitoring analyst on. Door closed. Noise minimized. Moved to private room. Warm blanket given. 17:37 XRAY Chest (1 view) In Process Unspecified. EDMS 17:42 Warm blanket given. tl4 17:56 Warm blanket given. tl4 18:09 Attending Physician role handed off by Bishnu Maldonado DO ms3 18:09 Cody Barrera MD is Attending Physician. ms3 18:13 Initial lab(s) drawn, by me, sent to lab. EKG done, by ED staff, reviewed by Cody Barrera MD. 20:37 Tiburcio Rodriguez PA is PHCP. cp 21:30 Troponin HS Sent. tl4 21:35 Warm blanket given. tl4 22:35 IV discontinued, intact, bleeding controlled, No redness/swelling at site. Pressure tl4 dressing applied. Administered Medications: 17:09 Drug: Aspirin PO Chewable Tablet 324 mg PO once; 81 mg tablets x 4 Route: PO; tl4 17:26 Follow up: Response: No adverse reaction tl4 22:20 Drug: Potassium PO Effervescent Tablet 25 mEq PO once; dissolve in 4 ounces of water or tl4 juice Route: PO; 22:37 Follow up: Response: No adverse reaction tl4 22:20 Drug: Ketorolac IVP 15 mg IVP once Route: IVP; Site: left forearm; tl4 22:37 Follow up: Response: No adverse reaction tl4 22:21 Drug: Tessalon Perle PO 200 mg PO once Route: PO; tl4 22:37 Follow up: Response: No adverse reaction; Medication administered at discharge. tl4 Medication: 17:27 VIS not applicable for this client. tl4 Outcome: 21:51 Discharge ordered by MD. cp 22:35 Discharged to home ambulatory, with family, tl4 22:35 Condition: stable 22:35 Discharge instructions given to patient, Instructed on discharge instructions, follow up and referral plans. medication usage, Demonstrated understanding of instructions, follow-up care, medications, Prescriptions given X 2, 22:36 Patient left the ED. tl4 Signatures: Dispatcher [employer] EDMS Krissy Thomas, RN RN Tiburcio Thakur, JUSTYN PA Bishnu Gonzalez DO DO ms3 Derrick Paul RN RN tl4 Stormy Garcia ae5
[2024-01-01 23:14] VITALS: BP 135/88; TEMP 98.6; O2SAT 98
--- NOTE | 2024-01-02 14:06 | EKG ---
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
--- NOTE | 2024-01-02 14:08 | EKG ---
Test Date: 2024-01-01 Test Time: 17:27:27 [employer] Farmer: TL MEASUREMENT RESULTS: Intervals: Rate: 70 VT: 144 QRSD: 76 QT: 380 QTc: 410 [place]: P: 71 VT: 144 QRS: 58 T: 245 INTERPRETIVE STATEMENTS: Normal sinus rhythm ST & T wave abnormality, consider inferior ischemia ST & T wave abnormality, consider anterior ischemia Abnormal ECG Compared to ECG 06/20/2016 06:37:54 ST (T wave) deviation now present Sinus bradycardia no longer present T-wave abnormality no longer present Possible ischemia still present Electronically Signed On 01-02-24 14:05:24 CDT by Rey Dawson
== END ==
LOC: ER 16:45
DX: R05.9 Cough, unspecified (principal); R07.9 Chest pain, unspecified; I10 Essential (primary) hypertension; I25.10 Atherosclerotic heart disease of native coronary artery without angina pectoris; F17.210 Nicotine dependence, cigarettes, uncomplicated; Z79.82 Long term (current) use of aspirin; Z88.1 Allergy status to other antibiotic agents; Z88.3 Allergy status to other anti-infective agents
CPT/HCPCS: 36415; 71045; 80048; 83735; 83880; 84484; 85025; 93005; 96374; 99285

== ENCOUNTER 2024-03-20 16:49 | Emergency (ER) | payer OTHER ==
[2024-03-20 18:43] LABS: Absolute Basophils 0.1 K/uL (0-0.5); Absolute Eosinophils 0.1 K/uL (0-0.5); Absolute Lymphocytes (CBC) 1.2 K/uL (0.7-4.9); Absolute Monocytes 0.4 K/uL (0.1-1.3); Absolute Neutrophil 4.1 K/uL (1.8-8.0); Basophils % 0.9 % (0-1.3); Hematocrit 37.7 % (36.0-45.0); Hemoglobin 12.3 g/dL (12.0-15.0); Lymphocytes % 20.7 % (15.3-44.8); MCH 26.8 pg (27.0-35.0); MCHC 32.6 g/dL (32.0-36.0); MCV 82.1 fL (80-100); MPV 8.8 fL (7.6-11.3); Monocytes % 7.2 % (3.3-12.3); Neutrophils % 69.2 % (41.7-73.7); Nucleated Red Blood Cells % 0.3 % (0-0); Platelets 284 thou/uL (152-406); RBC Red Blood Cell Count 4.59 M/uL (3.86-4.86); Red Cell Distribution Width 15.2 % (12.1-15.2)
[2024-03-20 18:59] LABS: Albumin 2.9 g/dL (3.4-5.0); Albumin/Globulin Ratio 0.7 (1.1-1.8); Alkaline Phosphatase 78 U/L (45-117); Anion Gap 8.5 mEq/L (5.0-15.0); BUN Blood Urea Nitrogen 8 mg/dL (7-18); Bicarbonate 29 mEq/L (21-32); Bilirubin Total 0.2 mg/dL (0.2-1.0); Globulin 4.4 g/dL (2.3-3.5); Glomerular Filtration Rate 81 ml/min (=/>90); Glucose Level 90 mg/dL (74-106); Lipase 35 U/L (13-75); Potassium 3.5 mEq/L (3.5-5.1); Protein, Total 7.3 g/dL (6.4-8.2); Sodium Level 139 mEq/L (136-145)
[2024-03-20 19:01] LABS: ALT/SGPT < 14 U/L (13-56); AST/SGOT < 10 U/L (15-37)
--- NOTE | 2024-03-20 19:34 | RAD REPORT ---
EXAM DESCRIPTION: CTAbdomen Pelvis W Contrast - 03/20/2024 7:21 pm CLINICAL HISTORY: Abdominal pain. ABD PAIN COMPARISON: <Comparisons> TECHNIQUE: Biphasic CT imaging of the abdomen and pelvis was performed with 100 ml non-ionic IV cont rast. All CT scans are performed using dose optimization technique as appropriate and may include automated exposure control or mA/KV adjustment according to patient size. FINDINGS: The lung bases are clear.Cholecystectomy clips. The liver contains a low-density lesion in the dome region measuring 14 mm. The spleen, pancreas, adr enal glands and right kidney are within normal limits. Multiple caliceal stones on the left kidney wi thout hydronephrosis. Moderate soft tissue is present in the region of the greater omentum suggesting omental carcinomatosi s. Mild ascites. No bowel obstruction or free air. No evidence of significant lymphadenopathy. No suspicious bony findings. 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 Clear etiology for this finding is not seen. Mild ascites. Left nephrolithiasis without hydronephrosis.
[2024-03-20 20:44] LABS: Sqamous Epithelial <5 /HPF (None Seen); Urine Bacteria <20 /HPF (<20); Urine Bilirubin NEGATIVE (Negative); Urine Blood Negative (Negative); Urine Clarity Clear (Clear); Urine Color Light-Yellow (Yellow); Urine Culture Reflex Order NOT NEEDED; Urine Glucose NEGATIVE (Negative); Urine Ketones NEGATIVE (Negative); Urine Microscopic Reflex YN ORDER UMIC; Urine Mucus Slight /HPF (None Seen); Urine Nitrite NEGATIVE (Negative); Urine Protein TRACE (Negative); Urine RBC <5 /HPF (None Seen); Urine Urobilinogen Normal (Normal); Urine WBC <5 /HPF (<5); Urine pH 6.5 (5.0-7.0)
[2024-03-20 20:52] LABS: Specific Gravity > 1.030 (1.005-1.030)
--- NOTE | 2024-03-20 20:56 | ER ---
Nurse's Notes [facility] Name: Areli Vanessa Age: 73 yrs Sex: Female : 1950 Arrival Date: 03/20/2024 Time: 16:49 Bed 27 Private MD: Diagnosis: Omental carcinomatosis;Abdominal pain, Generalized Presentation: 03/20 17:10 Chief complaint: Patient states: she has been having abdominal pain for 3 weeks. ap3 patient also complains of nausea. patient states her pain is currently a 9/10 on the pain scale. Coronavirus screen: At this time, the client does not indicate any symptoms associated with coronavirus-19. Ebola Screen: No symptoms or risks identified at this time. Initial Sepsis Screen: Does the patient meet any 2 criteria? No. Patient's initial sepsis screen is negative. Does the patient have a suspected source of infection? No. Patient's initial sepsis screen is negative. Risk Assessment: Do you want to hurt yourself or someone else? Patient reports no desire to harm self or others. Onset of symptoms is unknown. 17:10 Method Of Arrival: Ambulatory ap3 17:10 Acuity: BARRON 3 ap3 Triage Assessment: 17:12 General: Appears in no apparent distress. Behavior is calm, cooperative, appropriate ap3 for age. Pain: Complains of pain in abdomen Pain currently is 9 out of 10 on a pain scale. Neuro: Level of Consciousness is awake, alert, obeys commands, Oriented to person, place, time, situation. Cardiovascular: Patient's skin is warm and dry. Respiratory: Airway is patent Respiratory effort is even, unlabored, Respiratory pattern is regular, symmetrical. GI: Reports lower abdominal pain, upper abdominal pain, nausea. Historical: - Allergies: 17:11 Clindamycin; ap3 17:11 Flagyl; ap3 17:11 Levaquin; ap3 - PMHx: 17:11 CAD; carpel tunnel; cholecystectomy; GERD; hemorrhoids; Hypertension; hysterectomy; ap3 Kidney stones; - Immunization history:: Client reports receiving the 2nd dose of the Covid vaccine. - Infectious Disease History:: Denies. - Social history:: Smoking status: Patient reports the use of cigarette tobacco products, smokes one-half pack cigarettes per day. Screenin:12 [facility] ED Fall Risk Assessment (Adult) History of falling in the last 3 months, ap3 including since admission No falls in past 3 months (0 pts) Confusion or Disorientation No (0 pts) Intoxicated or Sedated No (0 pts) Impaired Gait No (0 pts) Mobility Assist Device Used No (0 pt) Altered Elimination No (0 pt) Score/Fall Risk Level 0 - 2 = Low Risk Oriented to surroundings, Maintained a safe environment, Educated pt \T\ family on fall prevention, incl call for assistance when getting out of bed, Assessed \T\ reinforced patient's understanding of fall precautions, Provided non-skid footwear, Hourly rounding (assess needs \T\ fall precautionary measures) done, Used ambulatory aids as needed (educated on \T\ assisted with), Used gait belt as appropriate. Abuse screen: Denies threats or abuse. Nutritional screening: No deficits noted. Tuberculosis screening: No symptoms or risk factors identified. Assessment: 17:16 General: patient states her last BM was 2 weeks ago. ap3 18:20 General: Appears in no apparent distress. comfortable, Behavior is calm, cooperative. cm10 Neuro: No deficits noted. Level of Consciousness is awake, alert, obeys commands, Oriented to person, place, time, situation, Appropriate for age. Respiratory: No deficits noted. Airway is patent Respiratory effort is even, unlabored, Respiratory pattern is regular, symmetrical. GI: Abdomen is flat, non-distended, Reports lower abdominal pain, upper abdominal pain. Musculoskeletal: No deficits noted. Range of motion: intact in all extremities. 19:30 Reassessment: Patient appears in no apparent distress at this time. No changes from cm10 previously documented assessment. Patient and/or family updated on plan of care and expected duration. Pain level reassessed. Patient is alert, oriented x 3, equal unlabored respirations, skin warm/dry/pink. 20:30 Reassessment: Patient appears in no apparent distress at this time. No changes from cm10 previously documented assessment. Patient and/or family updated on plan of care and expected duration. Pain level reassessed. Patient is alert, oriented x 3, equal unlabored respirations, skin warm/dry/pink. Vital Signs: 17:10 BP 130 / 75; Pulse 65; Resp 17; Temp 98.8; Pulse Ox 100% ; Weight 63.5 kg; Height 4 ft. ap3 9 in. ; Pain 9/10; 17:45 BP 126 / 60; Pulse 59; Resp 18; Pulse Ox 100% on R/A; cm10 18:00 BP 133 / 46; Pulse 57; Resp 18; Pulse Ox 95% ; cm10 18:30 BP 128 / 75; Pulse 58; Resp 18; Pulse Ox 98% on R/A; cm10 19:00 BP 128 / 74; Pulse 59; Resp 18; Pulse Ox 97% on R/A; cm10 20:20 BP 130 / 64; Pulse 58; Resp 18; Pulse Ox 95% on R/A; cm10 20:56 BP 129 / 64; Pulse 55; Resp 18; Pulse Ox 95% on R/A; cm10 17:10 Body Mass Index 30.30 (63.50 kg, 144.78 cm) ap3 17:10 Pain Scale: Adult ap3 ED Course: 16:51 Patient arrived in ED. rg4 16:58 [facility]iffani Bobby[facility] kb 16:58 Tiburcio Peralta MD is Attending Physician. kb 17:11 Triage completed. ap3 17:12 Arm band placed on right wrist. ap3 17:20 Patient has correct armband on for positive identification. Bed in low position. Call cm10 light in reach. 17:20 Provided Education on: ER process and procedures. Pulse ox on. NIBP on. cm10 17:51 Vidhya Leyva, RN is Primary Nurse. cm10 18:24 CBC with Diff Sent. cm10 18:24 CMP Sent. cm10 18:24 Lipase Sent. cm10 18:24 Initial lab(s) drawn, by la, sent to lab. Inserted saline lock: 22 gauge in right cm10 wrist, using aseptic technique. Blood collected. Missed attempt(s): 20 gauge in left hand. Bleeding controlled, band aid applied, catheter tip intact. 19:[address] via wheelchair. cm10 19:23 CT Abd/Pelvis - IV Contrast Only In Process Unspecified. EDMS 20:13 Attending Physician role handed off by Tiburcio Peralta MD sp4 20:13 Casimiro Ramos MD is Attending Physician. sp4 20:28 Urinalysis w/ reflexes Sent. cm10 21:19 No provider procedures requiring assistance completed. IV discontinued, intact, cm10 bleeding controlled, No redness/swelling at site. Pressure dressing applied. Administered Medications: No medications were administered Medication: 20:59 VIS not applicable for this client. cm10 Outcome: 20:55 Discharge ordered by . kb 21:19 Discharged to home ambulatory, cm10 21:19 Condition: good 21:19 Discharge instructions given to patient, Instructed on discharge instructions, follow up and referral plans. Demonstrated understanding of instructions, follow-up care, 21:20 Patient left the ED. cm10 Signatures: Dispatcher [employer] EDMS Tiffani Bobby, S[facility] CASTILLO-Keisha Antony rg4 Rekha Anton RN RN [email or web address] Casimiro Ramos MD MD sp4 Vidhya Leyva RN RN cm10
--- NOTE | 2024-03-20 20:56 | EDPHYS ---
[facility] Name: Areli Vanessa Age: 73 yrs Sex: Female : 1950 Arrival Date: 03/20/2024 Time: 16:49 Bed 27 Private MD: ED Physician Casimiro Ramos HPI: 03/20 18:13 This 73 yrs old Black Female presents to ER via Ambulatory with complaints of Abdominal kb Pain. 18:13 Pt is a 73 year old female who presents for abd pain and bloating that started 3 weeks kb ago and has gotten worse. Reports n/v and constipation. states last bowel movement was 2 weeks ago. Has taken stool softeners and miralax which has caused her to pass water, but still no bowel movement. . Historical: - Allergies: 17:11 Clindamycin; ap3 17:11 Flagyl; ap3 17:11 Levaquin; ap3 - PMHx: 17:11 CAD; carpel tunnel; cholecystectomy; GERD; hemorrhoids; Hypertension; hysterectomy; ap3 Kidney stones; - Immunization history:: Client reports receiving the 2nd dose of the Covid vaccine. - Infectious Disease History:: Denies. - Social history:: Smoking status: Patient reports the use of cigarette tobacco products, smokes one-half pack cigarettes per day. ROS: 18:13 Constitutional: As per HPI kb Exam: 18:13 Constitutional: This is a well developed, well nourished patient who is awake, alert, kb and in no acute distress. Head/Face: Normocephalic, atraumatic. ENT: Moist Mucous membranes Cardiovascular: Regular rate Respiratory: Respirations even and unlabored. No increased work of breathing. Talking in full sentences Skin: Warm, dry with normal turgor. Normal color. MS/ Extremity: Pulses equal, no cyanosis. Neurovascular intact. Full, normal range of motion. Neuro: Awake and alert, GCS 15, oriented to person, place, time, and situation. Moves all extremities. Normal gait. 18:13 Abdomen/GI: Inspection: distension, Bowel sounds: normal, Palpation: soft, in all quadrants, mild abdominal tenderness, in the abdomen diffusely, Vital Signs: 17:10 BP 130 / 75; Pulse 65; Resp 17; Temp 98.8; Pulse Ox 100% ; Weight 63.5 kg; Height 4 ft. ap3 9 in. ; Pain 9/10; 17:45 BP 126 / 60; Pulse 59; Resp 18; Pulse Ox 100% on R/A; cm10 18:00 BP 133 / 46; Pulse 57; Resp 18; Pulse Ox 95% ; cm10 18:30 BP 128 / 75; Pulse 58; Resp 18; Pulse Ox 98% on R/A; cm10 19:00 BP 128 / 74; Pulse 59; Resp 18; Pulse Ox 97% on R/A; cm10 20:20 BP 130 / 64; Pulse 58; Resp 18; Pulse Ox 95% on R/A; cm10 20:56 BP 129 / 64; Pulse 55; Resp 18; Pulse Ox 95% on R/A; cm10 17:10 Body Mass Index 30.30 (63.50 kg, 144.78 cm) ap3 17:10 Pain Scale: Adult ap3 MDM: 16:59 Patient medically screened. kb 18:15 Differential diagnosis: bowel obstruction, diverticulitis, non-specific abd pain. Data kb reviewed: vital signs, nurses notes. 20:53 Management of patient was discussed with the following: Dr Ramos who recommends kb outpatient follow up. Counseling: I had a detailed discussion with the patient and/or guardian regarding the historical points, exam findings, and any diagnostic results supporting the discharge/admit diagnosis, lab results, radiology results, the need for outpatient follow up, oncology, to return to the emergency department if symptoms worsen or persist or if there are any questions or concerns that arise at home. ED course: Discussed all results with pt and educated on importance of follow up with oncology for further workup. 03/20 17:18 Order name: CBC with Diff; Complete Time: 18:45 kb 03/20 17:18 Order name: CMP; Complete Time: 19:02 kb 03/20 17:18 Order name: Lipase; Complete Time: 19:02 kb 03/20 17:18 Order name: Urinalysis w/ reflexes; Complete Time: 20:53 kb 03/20 17:18 Order name: CT Abd/Pelvis - IV Contrast Only; Complete Time: 19:38 kb 03/20 17:18 Order name: IV Saline Lock; Complete Time: 18:24 kb 03/20 17:18 Order name: Labs collected and sent; Complete Time: 18:24 kb Administered Medications: No medications were administered Disposition Summary: 03/20/24 20:55 Discharge Ordered Notes: Location: Home kb Condition: Stable kb Diagnosis - Omental carcinomatosis kb - Abdominal pain, Generalized kb Followup: kb - With: Emergency Department - When: As needed - Reason: Worsening of condition Followup: kb - With: Private Physician - When: 2 - 3 days - Reason: Recheck today's complaints, Continuance of care, Re-evaluation by your physician Discharge Instructions: - Discharge Summary Sheet kb - Abdominal Pain, Adult, [id number] kb Forms: - Medication Reconciliation Form kb - Antibiotic Education kb - Prescription Opioid Use kb - Patient Portal Instructions kb - Leadership Thank You Letter kb Addendum: 03/22/2024 02:18 Co-signature as Attending Physician, Casimiro Ramos MD I agree with the assessment s p4 and plan of care. I reviewed the patient's care provided by the Advanced Practice Provider and agree with the diagnosis and treatment plan. Signatures: Dispatcher [employer] EDTiffani Green, UNIX SYSTEMS ADMINISTRATOR-C UNIX SYSTEMS ADMINISTRATOR-Rekha Herrera, RN RN ap3 Casimiro Ramos MD MD sp4 Corrections: (The following items were deleted from the chart) 03/20 17:19 17:19 CBC+H.LAB.BRZ ordered. EDMS EDMS 17:19 17:19 COMPREHENSIVE METABOLIC PANEL+C.LAB.BRZ ordered. EDMS EDMS 17:19 17:19 LIPASE+C.LAB.BRZ ordered. EDMS EDMS 17:19 17:19 Urinalysis+U.LAB.BRZ ordered. EDMS EDMS
[2024-03-20 22:21] VITALS: BP 129/64; TEMP 98.8; O2SAT 95
== END 2024-03-20 21:20 | disposition home or self-care (01) ==
LOC: ER 16:49
DX: C76.2 Malignant neoplasm of abdomen (principal)
CPT/HCPCS: 85025; 81001; 36415; 83690; 80053; 74177; 99284; Q9967